=== PATIENT | female | born 2005 | race African-American/Black ===

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

== ENCOUNTER 2025-03-02 13:02 | Emergency (ER) | payer SELFPAY ==
[~2025-03-02] VITALS: Ht 157.5 cm; Wt 59.0 kg
[2025-03-02 13:05] VITALS: O2SAT 100
[2025-03-02] MEDS ORDERED: CYCL10TA21 MT (13:35)
[2025-03-02] MEDS: CYCLOBENZAPRINE 10MG TABLET PO ONE (14:05)
[2025-03-02 14:07] VITALS: BP 108/76; PULSE 74; RESP 18; TEMP 36.9; O2SAT 100
== END 2025-03-02 14:08 | disposition home or self-care (01) ==
LOC: ER 13:02
DX: S13.4XXA Sprain of ligaments of cervical spine, initial encounter (principal); X58.XXXA Exposure to other specified factors, initial encounter; Y93.89 Activity, other specified; Y92.89 Other specified places as the place of occurrence of the external cause; Y99.8 Other external cause status
CPT/HCPCS: 99283